=== PATIENT | female | born 1955 | race Caucasian/White ===

== ENCOUNTER → 2018-12-15 | Outpatient (CLI) | payer OTHER ==
[~2018-12-15] MED LIST: ABAT250V; AMIT50 PO; ASPI81CH PO; Aspir 8181 MG; ERGO400; FISH1000; GEMF600; GLIP10; LEVSOD88; NAPR500ERA PO; RANI150; SIMV40; VENL150ER; Ventolin5 MG/1 ML; Vitamin C100 M1
== END | disposition home or self-care (01) ==
LOC: LAB 19:07 → LAB SHORT 19:07
DX: B35.1 Tinea unguium (principal)
CPT/HCPCS: 88304

== ENCOUNTER 2020-11-22 06:48 | Day surgery (SDC) | payer MEDICARE, OTHER ==
[~2020-11-22] VITALS: Ht 164 cm; Wt 73.9 kg
[~2020-11-22 06:48] MED LIST changes: -ERGO400; +ERGO400 PO; +FAMO20 PO; -GEMF600; +GEMF600 PO; -LEVSOD88; +LEVSOD88 PO; -SIMV40; +SIMV40 PO; -VENL150ER; +VENL150ER PO
[2020-11-22] MEDS ORDERED: BASAGLAR K100 UNIT/1 SC (07:18)
--- NOTE | 2020-11-22 07:55 | NUR ---
History, Chart, Medications and Allergies reviewed before start of procedure. Patient States Post-Procedure ride home has been arranged. CBG 78. DR COHEN AWARE, NEW ORDER. PT STATES SHE DOES FEEL A LITTLE SYMPTOMATIC.
--- NOTE | 2020-11-22 08:14 | NUR ---
VERIFIED ORDER FOR FULL AMP OF DEXTROSE WITH DR COHEN BEFORE ADMINISTERING. PT STATES SHE DOES FEEL A LITTLE NAUSEATED AND LIGHTHEADED. PT ALSO STATES THAT OFTEN HER BLOOD SUGAR IS LOW IN THE AM AND SHE DRINKS SOME JUICE TO HELP IT. PT INTO PROCEDURE ROOM AFTER DEXTROSE GIVEN IN DAY SURGERY AT 0809.
--- NOTE | 2020-11-22 08:43 | NUR ---
11/22/20 0843 Radha Paniagua History, Chart, Medications and Allergies reviewed before start of procedure.PATIENT DETERMINED TO BE ASA APPROPRIATE FOR PROPOFOL SEDATION PRIOR TO START OF PROCEDURE BY .MONITOR INTACT WITH CONTINUOUS PULSE OXIMETRY AND INTERMITTENT BP.3-LEAD EKG REVIEWED WITH PHYSICIAN PRIOR TO START OF PROCEDURE.O2 VIA N/C INTACT THROUGHOUT SEDATION/PROCEDURE.CO2 MONITORING T/O PROCEDURE
--- NOTE | 2020-11-22 09:00 | NUR ---
PT ARRIVES BACK FROM PROCEDURE, AWAKE, SLEEPY. WATER GIVEN. ORDER TO RECHECK CBG BEFORE DC, WAS 78 ON ADMIT. PT REPORTS USUALLY ON THE LOW SIDE. PLAN TO KEEP F/U, INCREASE PEPCID TO 2 A DAY.
--- NOTE | 2020-11-22 09:35 | NUR ---
PT DC'D, IV REMOVED. HANNAH PO WELL. PT DRESSED WC OUT. CALLED NO ASNWER, BUT PT REPORTS SHOUDL BE IN THE PARKING LOT. Discharge instructions reviewed with patient. Patient verbalizes understanding. Copy given to patient to take home. Discharged via wheelchair to private car for ride home.
--- NOTE | 2020-11-22 10:17 | NUR ---
PT RIDE IS NOT IN PARKLING LOT, AND AFTER CALLING 5 TIMES, NO ANSWER. BROUGHT PT BACK TO VOLUNTEER AREA TO WAIT FOR RIDE. CALLED SON JUAN FRANCISCO, NO ANSWER WELL.
== END 2020-11-22 09:35 | disposition home or self-care (01) ==
LOC: ORSCMMR 06:48 → ORD 08:00 → ORSCMMR 09:35
PROVIDERS: Internal Medicine Gastroenterology
PROC: 0DB68ZX Excision of Stomach, Via Natural or Artificial Opening Endoscopic, Diagnostic (ICD-10-PCS; principal; 2020-11-22 08:00)
PROC: 0DB48ZX Excision of Esophagogastric Junction, Via Natural or Artificial Opening Endoscopic, Diagnostic (ICD-10-PCS; principal; 2020-11-22 08:00)
PROC: 0DBN8ZX Excision of Sigmoid Colon, Via Natural or Artificial Opening Endoscopic, Diagnostic (ICD-10-PCS; principal; 2020-11-22 08:00)
PROC: 0DB58ZX Excision of Esophagus, Via Natural or Artificial Opening Endoscopic, Diagnostic (ICD-10-PCS; principal; 2020-11-22 08:00)
PROC: 0DBM8ZX Excision of Descending Colon, Via Natural or Artificial Opening Endoscopic, Diagnostic (ICD-10-PCS; principal; 2020-11-22 08:00)
PROC: 0DB98ZX Excision of Duodenum, Via Natural or Artificial Opening Endoscopic, Diagnostic (ICD-10-PCS; principal; 2020-11-22 08:00)
DX: K21.9 Gastro-esophageal reflux disease without esophagitis (principal); K29.50 Unspecified chronic gastritis without bleeding; B96.81 Helicobacter pylori [H. pylori] as the cause of diseases classified elsewhere; K44.9 Diaphragmatic hernia without obstruction or gangrene; Z12.11 Encounter for screening for malignant neoplasm of colon; K63.5 Polyp of colon; E11.9 Type 2 diabetes mellitus without complications; E03.9 Hypothyroidism, unspecified; I10 Essential (primary) hypertension; E78.00 Pure hypercholesterolemia, unspecified; J44.9 Chronic obstructive pulmonary disease, unspecified; G25.81 Restless legs syndrome; F32.9 Major depressive disorder, single episode, unspecified; Z79.4 Long term (current) use of insulin; Z79.899 Other long term (current) drug therapy; F17.210 Nicotine dependence, cigarettes, uncomplicated
CPT/HCPCS: 82947; 88305; 88342; A9270; J2250; J2704; J7120

== ENCOUNTER → 2021-01-19 | Outpatient (CLI) | payer MEDICARE, OTHER ==
[~2021-01-19] MED LIST changes: +BASAGLAR K100 UNIT/1 SC
[2021-01-19 14:55] LABS: BASOPHILS ABSOLUTE AUTO 0.04 K/mm3 (0.00-0.23); BASOPHILS PERCENT AUTO 1 % (0-2); EOSINOPHILS ABSOLUTE AUTO 0.09 K/mm3 (0.00-0.68); EOSINOPHILS PERCENT AUTO 1 % (0-6); Hematocrit 51.1 % (33.0-51.0); Hemoglobin 16.7 g/dL (11.5-16.0); IMMATURE GRAN ABSOLUTE AUTO 0.04 K/mm3 (0.00-0.10); IMMATURE GRAN PERCENT AUTO 1 % (0-1); LYMPHOCYTES ABSOLUTE AUTO 1.72 K/mm3 (0.84-5.20); LYMPHOCYTES PERCENT AUTO 27 % (21-46); MONOCYTES ABSOLUTE AUTO 0.62 K/mm3 (0.16-1.47); MONOCYTES PERCENT AUTO 10 % (4-13); Mean Corpuscular HGB 32.7 pg (26.0-34.0); Mean Corpuscular HGB Conc 32.7 g/dL (31.5-36.5); Mean Corpuscular Volume 100 fL (80-100); Mean Platelet Volume 10.7 fL (9.1-12.4); NEUTROPHILS ABSOLUTE AUTO 3.78 K/mm3 (1.96-9.15); NEUTROPHILS PERCENT AUTO 60 % (41-73); Platelet Count 290 K/mm3 (150-400); RDW Standard Deviation 45.3 fL (35.1-46.3); White Blood Cell Count 6.29 K/mm3 (4.00-11.30)
[2021-01-20 08:09] LABS: HIV SCREEN 4TH GENERATION WRFX Non Reactive (Non Reactive)
== END | disposition home or self-care (01) ==
LOC: LAB SHORT 09:20 → LAB 09:20
PROVIDERS: Student in an Organized Health Care Education/Training Program
DX: Z11.59 Encounter for screening for other viral diseases (principal); Z11.4 Encounter for screening for human immunodeficiency virus [HIV]; E11.65 Type 2 diabetes mellitus with hyperglycemia; E11.3559 Type 2 diabetes mellitus with stable proliferative diabetic retinopathy, unspecified eye; E55.9 Vitamin D deficiency, unspecified; R53.83 Other fatigue
CPT/HCPCS: 82306; 82652; 84681; 85025; 86337; 86803; 87389

== ENCOUNTER → 2021-01-21 | Outpatient (CLI) | payer MEDICARE, OTHER | END | disposition home or self-care (01) | LOC: LAB SHORT 06:00 → LAB 06:00 | DX: K29.00 Acute gastritis without bleeding (principal) | CPT/HCPCS: 87338 ==

== ENCOUNTER → 2022-05-21 | Outpatient (CLI) | payer MEDICARE, OTHER ==
[~2022-05-21] MED LIST changes: +LOSARTAN POTASS25 M2 PO; +PRAMIPEXOLE0.125 M1 PO
[2022-05-22 10:11] LABS: BASOPHILS ABSOLUTE AUTO 0.06 K/mm3 (0.00-0.23); BASOPHILS PERCENT AUTO 1 % (0-2); EOSINOPHILS ABSOLUTE AUTO 0.11 K/mm3 (0.00-0.68); EOSINOPHILS PERCENT AUTO 2 % (0-6); Hematocrit 47.5 % (33.0-51.0); Hemoglobin 15.6 g/dL (11.5-16.0); IMMATURE GRAN ABSOLUTE AUTO 0.03 K/mm3 (0.00-0.10); IMMATURE GRAN PERCENT AUTO 0 % (0-1); LYMPHOCYTES ABSOLUTE AUTO 2.46 K/mm3 (0.84-5.20); LYMPHOCYTES PERCENT AUTO 34 % (21-46); MONOCYTES ABSOLUTE AUTO 0.73 K/mm3 (0.16-1.47); MONOCYTES PERCENT AUTO 10 % (4-13); Mean Corpuscular HGB 31.8 pg (26.0-34.0); Mean Corpuscular HGB Conc 32.8 g/dL (31.5-36.5); Mean Corpuscular Volume 97 fL (80-100); Mean Platelet Volume 9.8 fL (9.1-12.4); NEUTROPHILS ABSOLUTE AUTO 3.94 K/mm3 (1.96-9.15); NEUTROPHILS PERCENT AUTO 54 % (41-73); Platelet Count 355 K/mm3 (150-400); RDW Coefficient Variation 12.9 % (11.7-14.2); RDW Standard Deviation 46.1 fL (35.1-46.3); Red Blood Cell Count 4.91 M/mm3 (3.80-5.20); White Blood Cell Count 7.33 K/mm3 (4.00-11.30)
[2022-05-22 10:41] LABS: Albumin, Blood 3.6 g/dL (3.4-5.0); Bilirubin, Total 0.4 mg/dL (0.1-1.0); Bun/Creatinine Ratio 10.3 (12.0-20.0); Calcium, Blood 8.8 mg/dL (8.5-10.1); Creatinine, Blood 0.58 mg/dL (0.40-1.00); Globulin, Blood 3.7 g/dL (2.2-4.0); Magnesium, Blood 1.8 mg/dL (1.6-2.4); Percent Saturation 35.9 % (15.0-50.0); Potassium, Blood 4.3 mmol/L (3.5-5.5); Thyroid Stimulating Hormone 9.05 uIU/mL (0.360-4.800); Total Protein, Blood 7.3 g/dL (6.4-8.2)
== END | disposition home or self-care (01) ==
LOC: LAB SHORT 15:55 → LAB 15:55
PROVIDERS: Student in an Organized Health Care Education/Training Program
DX: E03.9 Hypothyroidism, unspecified (principal); E83.42 Hypomagnesemia
CPT/HCPCS: 80053; 82728; 83540; 83550; 83735; 84443; 85025

== ENCOUNTER 2023-03-07 06:34 | Day surgery (SDC) | payer MEDICARE, OTHER ==
[~2023-03-07] VITALS: Ht 162.6 cm; Wt 63.0 kg
[~2023-03-07 06:34] MED LIST changes: +Bisoprolol Fumar5 MG PO; +Pulmicort Flex90 MCG INH; +VITAMIN B-1100 M1 PO
--- NOTE | 2023-03-07 09:01 | NUR ---
PT BACK TO RECOVERY ROOM. SITTING UP IN RECLINER. VSS. MERRIT BAND TO R WRIST. NO BLEEDING OR HEMATOMA NOTED. PT GIVEN COFFEE AND BREAKFAST.
[2023-03-07 09:15] VITALS: BP 120/79; BP 128/94
[2023-03-07 09:30] VITALS: BP 128/94
[2023-03-07 10:00] VITALS: BP 125/66
--- NOTE | 2023-03-07 10:15 | NUR ---
TR BAND FULLY DEFLATED. PT REMINDED OF PRECAUTIONS
[2023-03-07 10:30] VITALS: BP 116/62
--- NOTE | 2023-03-07 10:50 | NUR ---
PT DRESSED, AND UP TO BR. NO BLEEDING OR HEMATOMA NOTED TO R WRIST. R BAND REMOVED AND REPLACED WITH DOT CLOTH. IV D/C CATHETER INTACT. PT AND SPOUSE, JAQUELINE VERBALIZE D/C INSTRUCTIONS. PT WHEELED OUT TO CAR.
== END 2023-03-07 11:51 | disposition home or self-care (01) ==
LOC: MHTC 06:34 → ECHO 06:34 → MHTC 07:00 → ECHO 07:00
DX: I25.10 Atherosclerotic heart disease of native coronary artery without angina pectoris (principal); I10 Essential (primary) hypertension; E78.5 Hyperlipidemia, unspecified; J44.9 Chronic obstructive pulmonary disease, unspecified; E03.9 Hypothyroidism, unspecified; Z88.5 Allergy status to narcotic agent; Z79.890 Hormone replacement therapy; Z79.899 Other long term (current) drug therapy
CPT/HCPCS: 36415; 76937; 80048; 85007; 85027; 85610; 93306; 93454; 99152; A9270; C1769; C1887; C1894; J1644; J2250; J3010; J7030; J7050; Q9967

== ENCOUNTER → 2024-07-22 | Outpatient (CLI) | payer OTHER ==
[2024-07-22 15:26] LABS: Source, Urine Voided
[2024-07-22 16:19] LABS: Appearance, Urine Cloudy (Clear); Bilirubin, Urine Neg (Neg); Blood, Urine 2+ (Neg); Color, Urine Yellow (P-Yellow); Glucose Qualitative, Urine Neg (Neg); Ketones, Urine Neg (Neg); Leukocyte Esterase, Urine 3+ (Neg); Nitrite, Urine Neg (Neg); Protein, Urine 2+ (Neg); Urobilinogen, Urine NORM (Normal); pH, Urine 6.5 (5.0-8.0)
[2024-07-22 16:26] LABS: White Blood Cells, Urine TNTC /hpf (0-5)
[2024-07-22 16:27] LABS: Bacteria Many /hpf; Squamous Epithelial Cells Not Seen /hpf (Few); Transitional Epithelial Cells Rare /hpf (0-Rare)
== END | disposition home or self-care (01) ==
LOC: LAB SHORT 15:24 → LAB 15:24
PROVIDERS: Internal Medicine
DX: R30.0 Dysuria (principal)
CPT/HCPCS: 81001; 87077; 87086; 87186